=== PATIENT | male | born 1940 | race African-American/Black ===

== ENCOUNTER 2017-05-02 21:22 | Emergency (ER) | payer MEDICARE ==
[~2017-05-02] VITALS: Ht 185.4 cm; Wt 95.0 kg
[~2017-05-02 21:22] MED LIST: Z.0.NO CURRENT MEDS
[2017-05-02 21:43] VITALS: BP 216/98; PULSE 92; RESP 16; TEMP 98.9; O2SAT 99
[2017-05-02 22:20] VITALS: BP 217/99; PULSE 83; RESP 16; O2SAT 99
[2017-05-02] MEDS ORDERED: LANTUS2P SQ ×2 (22:24)
[2017-05-02] MEDS ORDERED: AMLO2.5T PO (22:24)
--- NOTE | 2017-05-02 22:32 | PD ---
HPI Chief Complaint: Fall Time Seen by Provider: 22:28 Travel History International Travel<30 days: No Contact w/Intl Traveler<30days: No Traveled to known affect area: No History of Present Illness HPI The patient is 76 year old male who presents to the [facility] emergency department with a history of reportedly falling sometime in the afternoon earlier today. He reports that he felt dizzy prior to the fall. The patient reports that he had been outside working on a lawnmower. He reports that it took longer than usual and he missed his afternoon snack. He believes that his blood sugar may have been low contributing to the dizziness. He denies having any dizziness at this time. He denies having any one-sided weakness, slurred speech, facial droop, or difficulty with word finding ability. He denies having any vision changes. He is unsure whether he lost consciousness with the fall. He did strike his right ear. He reports that he did not come in right away as he thought that the bleeding from his right ear was stopped, however it lasted longer than usual thus he decided to come in. He did eat a meal prior to arrival. The patient arrives with a blood sugar of 109. He denies having any chest pain, chest pressure, or shortness of breath. He denies taking any blood thinners or aspirin daily. On review of systems, he denies having any recent fevers or chills, cough or congestion, neck pain, abdominal pain, vomiting, diarrhea, urinary symptoms, or other neurologic symptoms. PFSH Past Medical History Narrative Medical The patient's past medical history is significant for diabetes mellitus, hypertension, arthritis. Hx Anticoagulant Therapy: No Blood Disorders: No Cancer: No Cardiovascular Problems: Yes Gastrointestinal Disorders: No Genitourinary: Yes Hypertension: Yes Immune Disorder: No Musculoskeletal: No Neurologic: Yes (DIZINESS) Psychiatric: No Reproductive: No Respiratory: No Past Surgical History Narrative Surgical The patient's past surgical history is significant for varicose vein surgery. Abdominal Surgery: No Cardiac Surgery: Yes (HTN, LIGHT HEADED) Ear Surgery: No Endocrine Surgery: No Eye Surgery: No Genitourinary Surgery: No Neurologic Surgery: Yes (DIZZINESS) Oral Surgery: No Pacemaker: No Thoracic Surgery: No Other Surgery: Yes (VERICOSE VEINS 20 + YEARS) Social History Alcohol Use: Yes (BEER LAST USED 2 MONTHS) Tobacco Use: Yes (EVERYDAY LAST TIME USED 12/17/06) Substance Use: No Allergies-Medications (Allergen,Severity, Reaction): Coded Allergies: No Known Allergies (Verified Allergy, Mild, 05/02/17) Reported Meds & Prescriptions Reported Meds & Active Scripts Active Reported Amlodipine (Amlodipine Besylate) 2.5 Mg Tab 2.5 Mg PO DAILY Lantus Inj (Insulin Glargine) 1,000 Unit/10 Ml Vial 20 Units SQ AC BREAKFAST Lantus Inj (Insulin Glargine) 1,000 Unit/10 Ml Vial 30 Units SQ AC DINNER No Current Meds (Miscellaneous Medication) Misc Review of Systems Except as stated in HPI: all other systems reviewed are Neg General / Constitutional: No: Fever Eyes: No: Visual changes HENT: Positive: Earache, No: Headaches, Rhinorrhea, Congestion Cardiovascular: No: Chest Pain or Discomfort Respiratory: No: Shortness of Breath Gastrointestinal: No: Abdominal Pain Genitourinary: No: Dysuria Musculoskeletal: No: Pain Skin: No Rash Neurologic: Positive: Weakness, Dizziness, No: Focal Abnormalities, Change in Mentation, Slurred Speech, Sensory Disturbance Psychiatric: No: Depression Endocrine: No: Polydipsia Hematologic/Lymphatic: No: Easy Bruising Physical Exam Narrative General: The patient is a well-developed well-nourished male in no acute distress. Head and Neck exam: Head is normocephalic, with evidence of trauma to the right ear. The patient is noted to have a laceration involving the pinna right side. Bleeding is controlled. This is tender to palpation. Eyes: EOMI, pupils are equal round and reactive to light. Nose: Midline septum with pink mucous membranes Mouth: Dentition unremarkable. Moist mucus membranes. Posterior oropharynx is not erythematous. No tonsillar hypertrophy. Uvula midline. Airway patent. Neck: No palpable lymphadenopathy. No nuchal rigidity. No thyromegaly. Cardiovascular: Regular rate and rhythm without murmurs, gallops, or rubs. Lungs: Clear to auscultation bilaterally. No wheezes, rhonchi, or rales. Abdomen: Soft, without tenderness to palpation in all 4 quadrants of the abdomen. No guarding, rebound, or rigidity. Normal bowel sounds are audible. No tenderness on palpation of McBurney's point. Negative Ceron sign. Extremities: No clubbing or cyanosis. The patient has trace to 1+ pitting edema bilateral lower extremities. No calf tenderness on palpation. 2+ pulses in all 4 extremities. Back: No spinous process tenderness to palpation. No costovertebral angle tenderness to palpation. Neurologic Exam: Cranial nerves 2-12 were intact on exam. Strength is 5/5 in all 4 extremities. No sensory deficits noted. Skin Exam: The patient is noted to have abrasion along with dorsal aspect of the left forearm. A bandage was applied prior to my arrival in the room. Intact skin that is warm and dry. Data Data Last Documented VS Vital Signs Date Time Temp Pulse Resp B/P (MAP) Pulse Ox O2 Delivery O2 Flow Rate FiO2 05/03/17 01:28 79 18 221/97 (138) 99 Room Air 05/02/17 21:43 98.9 Orders Orders Electrocardiogram (05/02/17 22:29) Complete Blood Count With Diff (05/02/17 22:29) Comprehensive Metabolic Panel (05/02/17 22:29) Creatine Kinase (Cpk) (05/02/17 22:29) Ckmb (Isoenzyme) Profile (05/02/17 22:29) Troponin I (05/02/17 22:29) B-Type Natriuretic Peptide (05/02/17 22:29) Prothrombin Time / Inr (Pt) (05/02/17 22:29) Act Partial Throm Time (Ptt) (05/02/17 22:29) Urinalysis - C+S If Indicated (05/02/17 22:29) Magnesium (Mg) (05/02/17 22:29) Thyroid Stimulating Hormone (05/02/17 22:29) Chest, Single Ap (05/02/17 22:29) Ct Brain W/O Iv Contrast(Rout) (05/02/17 22:29) Iv Access Insert/Monitor (05/02/17 22:29) Ecg Monitoring (05/02/17 22:29) Oximetry (05/02/17 22:29) Ct Cerv Spine W/O Contrast (05/02/17 ) [id number] (Booster) Inj (Boostrix (05/02/17 23:15) Sodium Chlor 0.9% 1000 Ml Inj (Ns 1000 M (05/02/17 23:15) CKMB (05/02/17 23:15) CKMB% (05/02/17 23:15) Cefazolin Inj (Ancef Inj) (05/02/17 23:45) Labetalol Inj (Trandate Inj) (05/03/17 01:30) Labs Laboratory Tests Test 05/02/17 23:15 05/03/17 00:58 05/03/17 01:02 White Blood Count 5.7 TH/MM3 Red Blood Count 4.33 MIL/MM3 Hemoglobin 13.7 GM/DL Hematocrit 40.7 % Mean Corpuscular Volume 94.0 FL Mean Corpuscular Hemoglobin 31.6 PG Mean Corpuscular Hemoglobin Concent 33.6 % Red Cell Distribution Width 14.9 % Platelet Count 198 TH/MM3 Mean Platelet Volume 7.8 FL Neutrophils (%) (Auto) 73.1 % Lymphocytes (%) (Auto) 17.7 % Monocytes (%) (Auto) 7.8 % Eosinophils (%) (Auto) 0.6 % Basophils (%) (Auto) 0.8 % Neutrophils # (Auto) 4.2 TH/MM3 Lymphocytes # (Auto) 1.0 TH/MM3 Monocytes # (Auto) 0.5 TH/MM3 Eosinophils # (Auto) 0.0 TH/MM3 Basophils # (Auto) 0.0 TH/MM3 CBC Comment DIFF FINAL Differential Comment Blood Urea Nitrogen 15 MG/DL Creatinine 1.50 MG/DL Random Glucose 116 MG/DL Total Protein 7.2 GM/DL Albumin 3.5 GM/DL Calcium Level 8.5 MG/DL Magnesium Level 2.1 MG/DL Alkaline Phosphatase 108 U/L Aspartate Amino Transf (AST/SGOT) 25 U/L Alanine Aminotransferase (ALT/SGPT) 15 U/L Total Bilirubin 0.6 MG/DL Sodium Level 142 MEQ/L Potassium Level 4.4 MEQ/L Chloride Level 107 MEQ/L Carbon Dioxide Level 28.9 MEQ/L Anion Gap 6 MEQ/L Estimat Glomerular Filtration Rate 55 ML/MIN Total Creatine Kinase 185 U/L Creatine Kinase MB 1.4 NG/ML Troponin I 0.04 NG/ML B-Type Natriuretic Peptide 29 PG/ML Thyroid Stimulating Hormone 3rd Gen 2.500 uIU/ML Prothrombin Time 10.8 SEC Prothromb Time International Ratio 1.1 RATIO Activated Partial Thromboplast Time 27.8 SEC MDM Medical Decision Making Medical Screen Exam Complete: Yes Emergency Medical Condition: Yes Medical Record Reviewed: Yes Differential Diagnosis Vasovagal syncope, versus hypoglycemia, versus cardiac arrhythmia, versus acute coronary syndrome Narrative Course During the course of the patient's emergency department visit, the patient's history, examination, and differential diagnosis were reviewed with the patient. The patient was placed on a rollout manager with oximetry and frequent blood pressure monitoring. The patient had IV access obtained and blood work sent for analysis. Hector Flowers, the physician web marketing assistant, was consulted regarding wound cleaning and irrigation of his right ear laceration The patient was initially provided Ancef 2 g IV, and update to his tetanus. The patient was noted to be hypertensive. The patient continued to be hypertensive during his evaluation. He reports he is on a half tablet of amlodipine daily. The patient was given labetalol 10 mg IV 1. The patient denies having any headache, neck pain, chest pain, chest pressure, or shortness of breath. He denies having any other focal neurologic symptoms. He denies having any vertigo. The patient's laboratory studies were reviewed and remarkable for a white count of 5.7, hemoglobin 13.7, platelets 198 with 73.1 neutrophils. CMP is remarkable for creatinine 1.50, glucose 116, cardiac enzymes within normal limits, BNP 29, TSH 2.5. PT 10.8, PTT 27.8. Radiology studies were reviewed and remarkable for a CT scan of the brain shows no acute intracranial abnormality, cerebral atrophy. A chest x-ray showed no acute cardiopulmonary disease. CT scan of the C-spine shows degenerative changes without fracture or subluxation. The patient on reexamination reports having no recurrence of dizziness since eating his snack and dinner. The patient reports that he did not check his blood sugar when he thought it was low. The patient was instructed to call his primary care physician in the morning to discuss his emergency department visit and schedule an appointment for follow- up for recheck of his blood pressure. The patient is resting comfortably and feels better, is alert and in no distress. The patient's results and examination findings were discussed with the patient. The repeat examination is unremarkable and benign. The history, exam, diagnostic testing, and current condition do not suggest any significant pathology to warrant further testing, continued ED treatment, admission, or surgical evaluation at this point. The vital signs have been stable. The patient does not have uncontrollable pain, intractable vomiting, or other significant symptoms. The patient's condition is stable and appropriate for discharge. The patient will pursue further outpatient evaluation with a primary care physician or other designated or consulting physician as indicated in the discharge instructions. The patient expressed understanding and was agreeable with this plan. Diagnosis Primary Impression: Dizziness Additional Impressions: Head injury Qualified Codes: S09.90XA - Unspecified injury of head, initial encounter Laceration of ear Qualified Codes: S01.311A - Laceration without foreign body of right ear, initial encounter Hypertension Qualified Codes: I10 - Essential (primary) hypertension Referrals: Primary Care Physician 1 day Patient Instructions: General Instructions, Head Injury (ED), Hypertension (ED) , Laceration (ED) Departure Forms: Tests/Procedures Med/Other Pt SpecificInfo: No Change to Meds Disposition: 01 DISCHARGE HOME Condition: Stable Vandana Alvarado MD May 02, 2017 22:32
--- NOTE | 2017-05-02 23:06 | RADRPT ---
EXAM DATE/TIME: 05/02/2017 22:42 [facility] COMPARISON: No previous studies available for comparison. INDICATIONS : Syncope. MEDICAL HISTORY : Diabetes. SURGICAL HISTORY : None. ENCOUNTER: Initial ACUITY: 1 day PAIN SCORE: 0/10 LOCATION: Bilateral chest FINDINGS: A single view of the chest demonstrates the lungs to be symmetrically aerated without evidence of mas s, infiltrate or effusion. The cardiomediastinal contours are unremarkable. Osseous structures are intact. CONCLUSION: No acute disease. Hector Viera MD on May 02, 2017 at 23:03 Board Certified Radiologist. This report was verified electronically.
[2017-05-02] MEDS ORDERED: DIPHTH/TETANUS/ACEL PERTUSSIS (BOOSTER) 0.5 ML VIAL/PFS IM ONE (23:15)
[2017-05-02] MEDS ORDERED: ceFAZolin 2 GM PREMIX 50 ML IV ONE (23:15)
[2017-05-02] MEDS ORDERED: SODIUM CHLOR 0.9% 1000 ML INJ 1,000 ML IV SCH (23:15)
--- NOTE | 2017-05-02 23:15 | RADRPT ---
EXAM DATE/TIME: 05/02/2017 23:01 [facility] COMPARISON: No previous studies available for comparison. INDICATIONS : Trauma. Fell hitting right side of head. RADIATION DOSE: 41.22 CTDIvol (mGy) MEDICAL HISTORY : Cardiovascular disease. Hypertension. SURGICAL HISTORY : None. ENCOUNTER: Initial ACUITY: 1 day PAIN SCALE: 5/10 LOCATION: Right cranial TECHNIQUE: Multiple contiguous axial images were obtained of the head. Using automated exposure control and adj ustment of the mA and/or kV according to patient size, radiation dose was kept as low as reasonably a chievable to obtain optimal diagnostic quality images. DICOM format image data is available electro nically for review and comparison. FINDINGS: CEREBRUM: The ventricles are mildly prominent consistent with atrophy. No evidence of midline shift, mass lesi on, hemorrhage or acute infarction. No extra-axial fluid collections are seen. POSTERIOR FOSSA: The cerebellum and brainstem are intact. The 4th ventricle is midline. The cerebellopontine angle i s unremarkable. EXTRACRANIAL: The visualized portion of the orbits is intact. SKULL: The calvaria is intact. No evidence of skull fracture. CONCLUSION: No acute intracranial disease. Cerebral atrophy. Jono Spann MD on May 02, 2017 at 23:12 Board Certified Radiologist. This report was verified electronically.
--- NOTE | 2017-05-02 23:23 | RADRPT ---
EXAM DATE/TIME: 05/02/2017 23:01 [facility] COMPARISON: No previous studies available for comparison. INDICATIONS : Trauma. Fell hitting right side of head. RADIATION DOSE: 21.25 CTDIvol (mGy) MEDICAL HISTORY : Cardiovascular disease. Hypertension. SURGICAL HISTORY : None. ENCOUNTER: Initial ACUITY: 1 day PAIN SCALE: 0/10 LOCATION: neck TECHNIQUE: Volumetric scanning of the cervical spine was performed. Multiplanar reconstructions in the sagittal, coronal and oblique axial planes were performed. Using automated exposure control and adjustment o f the mA and/or kV according to patient size, radiation dose was kept as low as reasonably achievable to obtain optimal diagnostic quality images. DICOM format image data is available electronically f or review and comparison. FINDINGS: VERTEBRAE: Normal vertebral body height. Multilevel degenerative changes. Anterior endplate osteophytes at multi ple levels. Calcification anterior longitudinal ligament C4-C7. ALIGNMENT: No evidence of subluxation. C2-C3: The bony spinal canal is normal in size. No evidence of disc bulge or herniation. Right neural concetta en severely encroached upon. C3-C4: The bony spinal canal is normal in size. No evidence of disc bulge or herniation. Mild neural forami nal narrowing bilaterally. Hypertrophic facet on the right. C4-C5: The bony spinal canal is normal in size. No evidence of disc bulge or herniation. Mild neural forami nal narrowing bilaterally. C5-C6: The bony spinal canal is normal in size. No evidence of disc bulge or herniation. The neural forami na are bilaterally patent. C6-C7: The bony spinal canal is normal in size. No evidence of disc bulge or herniation. The neural forami na are bilaterally patent. C7-T1: The bony spinal canal is normal in size. No evidence of disc bulge or herniation. The neural forami na are bilaterally patent. CONCLUSION: 1. Degenerative changes without fracture or subluxation. Jono Spann MD on May 02, 2017 at 23:17 Board Certified Radiologist. This report was verified electronically.
[2017-05-02 23:27] LABS: AUTOMATED NEUTROPHIL # 4.2 TH/MM3 (1.8-7.7); BASOPHIL % 0.8 % (0.0-2.0); EOSINOPHIL % 0.6 % (0.0-4.0); HEMATOCRIT 40.7 % (39.0-51.0); HEMOGLOBIN 13.7 GM/DL (13.0-17.0); LYMPH % 17.7 % (9.0-44.0); MEAN CORPUSCULAR HEMOGLOBIN 31.6 PG (27.0-34.0); MEAN CORPUSCULAR HGB CONC 33.6 % (32.0-36.0); MEAN PLATELET VOLUME 7.8 FL (7.0-11.0); MONO % 7.8 % (0.0-8.0); MONOCYTE # 0.5 TH/MM3 (0-0.9); NEUT % 73.1 % (16.0-70.0); PLATELET COUNT 198 TH/MM3 (150-450); RED BLOOD COUNT 4.33 MIL/MM3 (4.50-5.90); RED CELL DISTRIBUTION WIDTH 14.9 % (11.6-17.2); WHITE BLOOD COUNT 5.7 TH/MM3 (4.0-11.0)
[2017-05-02 23:41] LABS: ALBUMIN 3.5 GM/DL (3.4-5.0); ALT (GPT) 15 U/L (12-78); AST (GOT) 25 U/L (15-37); BICARBONATE 28.9 MEQ/L (21.0-32.0); BLOOD UREA NITROGEN 15 MG/DL (7-18); CALCIUM 8.5 MG/DL (8.5-10.1); CHLORIDE 107 MEQ/L (98-107); GLOMERULAR FILTRATION RATE 55 ML/MIN (>89); GLUCOSE,RANDOM 116 MG/DL (74-106); MAGNESIUM 2.1 MG/DL (1.5-2.5); SODIUM (NA) 142 MEQ/L (136-145)
[2017-05-02] MEDS ORDERED: CEFAZOLIN INJ 2,000 MG in SODIUM CHLORIDE 0.9% INJ 100 ML IV ONE (23:45)
[2017-05-02 23:51] LABS: ALKALINE PHOSPHATASE 108 U/L (45-117); TOTAL BILIRUBIN ADULT 0.6 MG/DL (0.2-1.0); TOTAL PROTEIN 7.2 GM/DL (6.4-8.2); TROPONIN I 0.04 NG/ML (0.02-0.05)
--- NOTE | 2017-05-03 00:39 | PD ---
Physical Exam Date Seen by Provider: May 03, 2017 Time Seen by Provider: 00:35 Narrative Skin: Patient has a 4 cm flap laceration to the right helix. No laceration through the cartilage. Data Data Last Documented VS Vital Signs Date Time Temp Pulse Resp B/P (MAP) Pulse Ox O2 Delivery O2 Flow Rate FiO2 05/02/17 22:20 83 16 217/99 (138) 99 Room Air 05/02/17 21:43 98.9 Orders Orders Electrocardiogram (05/02/17 22:29) Complete Blood Count With Diff (05/02/17 22:29) Comprehensive Metabolic Panel (05/02/17 22:29) Creatine Kinase (Cpk) (05/02/17 22:29) Ckmb (Isoenzyme) Profile (05/02/17:29) Troponin I (05/02/17:) B-Type Natriuretic Peptide (05/02/17:29) Prothrombin Time / Inr (Pt) (05/02/17:29) Act Partial Throm Time (Ptt) (05/02/17:29) Urinalysis - C+S If Indicated (05/02/17 22:29) Magnesium (Mg) (05/02/17 22:29) Thyroid Stimulating Hormone (05/02/17 22:29) Chest, Single Ap (05/02/17 22:29) Ct Brain W/O Iv Contrast(Rout) (05/02/17 22:29) Iv Access Insert/Monitor (05/02/17 22:29) Ecg Monitoring (05/02/17:29) Oximetry (05/02/17 22:29) Ct Cerv Spine W/O Contrast (05/02/17 ) [id number] (Booster) Inj (Boostrix (05/02/17 23:15) Sodium Chlor 0.9% 1000 Ml Inj (Ns 1000 M (05/02/17 23:15) CKMB (05/02/17 23:15) CKMB% (05/02/17 23:15) Cefazolin Inj (Ancef Inj) (05/02/17 23:45) Labs Laboratory Tests Test 05/02/17 23:15 White Blood Count 5.7 TH/MM3 Red Blood Count 4.33 MIL/MM3 Hemoglobin 13.7 GM/DL Hematocrit 40.7 % Mean Corpuscular Volume 94.0 FL Mean Corpuscular Hemoglobin 31.6 PG Mean Corpuscular Hemoglobin Concent 33.6 % Red Cell Distribution Width 14.9 % Platelet Count 198 TH/MM3 Mean Platelet Volume 7.8 FL Neutrophils (%) (Auto) 73.1 % Lymphocytes (%) (Auto) 17.7 % Monocytes (%) (Auto) 7.8 % Eosinophils (%) (Auto) 0.6 % Basophils (%) (Auto) 0.8 % Neutrophils # (Auto) 4.2 TH/MM3 Lymphocytes # (Auto) 1.0 TH/MM3 Monocytes # (Auto) 0.5 TH/MM3 Eosinophils # (Auto) 0.0 TH/MM3 Basophils # (Auto) 0.0 TH/MM3 CBC Comment DIFF FINAL Differential Comment Blood Urea Nitrogen 15 MG/DL Creatinine 1.50 MG/DL Random Glucose 116 MG/DL Total Protein 7.2 GM/DL Albumin 3.5 GM/DL Calcium Level 8.5 MG/DL Magnesium Level 2.1 MG/DL Alkaline Phosphatase 108 U/L Aspartate Amino Transf (AST/SGOT) 25 U/L Alanine Aminotransferase (ALT/SGPT) 15 U/L Total Bilirubin 0.6 MG/DL Sodium Level 142 MEQ/L Potassium Level 4.4 MEQ/L Chloride Level 107 MEQ/L Carbon Dioxide Level 28.9 MEQ/L Anion Gap 6 MEQ/L Estimat Glomerular Filtration Rate 55 ML/MIN Total Creatine Kinase 185 U/L Creatine Kinase MB 1.4 NG/ML Troponin I 0.04 NG/ML B-Type Natriuretic Peptide 29 PG/ML Thyroid Stimulating Hormone 3rd Gen 2.500 uIU/ML [facility] Medical Record Reviewed: Yes Supervised Visit with [place]: Yes Differential Diagnosis . Narrative Course Patient lacerations closed sutures. Procedures Procedure Narrative LACERATION LOCATION: Right earlobe inner helix LENGTH: 4 cm NUMBER OF STITCHES/CAROL:8 REPAIR: The area of the laceration was prepped with Betadine and sterilely draped. The laceration was infiltrated with 1% lidocaine]. The wound was copiously irrigated and explored without evidence of foreign body, tendon injury or neurovascular injury. The wound was closed using 6-0 Prolene]. This was a [-] layer repair. A sterile dressing was applied. The patient was advised to keep the dressing clean and dry. Patient tolerated the procedure well. Condition: Stable Hector Oleary May 03, 2017 00:39
[2017-05-03 01:28] VITALS: BP 221/97; PULSE 79; RESP 18; O2SAT 99
[2017-05-03] MEDS ORDERED: LABETALOL HCL 100 MG/20 ML VIAL IV PUSH ONE (01:30)
[2017-05-03 01:38] LABS: INTERNATIONAL NORMALIZED RATIO 1.1 RATIO; PROTHROMBIN TIME - PATIENT 10.8 SEC (9.8-11.6)
[2017-05-03 01:50] LABS: BILIRUBIN, URINE NEG (NEG); BLOOD, URINE NEG (NEG); GLUCOSE,URINE NEG (NEG); KETONE, URINE NEG (NEG); MUCUS URINE FEW /lpf (OCC); NITRITE,URINE NEG (NEG); PH, URINE 5.5 (5.0-8.5); SQUAMOUS EPITHELIAL CELL URINE <1 /hpf (0-5); URINE COLOR YELLOW (YELLW/STRAW); URINE LEUKOCYTE ESTERASE NEG (NEG)
[2017-05-03 01:57] VITALS: BP 187/86; PULSE 77; RESP 18; O2SAT 99
--- NOTE | 2017-05-03 16:03 | EKG ---
Date Performed: 05/03/2017 Time Performed: 01:24:34 PTAGE: 76 years EKG: Sinus rhythm RIGHT BUNDLE BRANCH BLOCK INFERIOR MYOCARDIAL INFARCTION ABNORMAL ECG PREVIOUS TRACING 12/18/[address] changes have improved since prior tracing. Right bundl e branch block is new. Clinical correlation is strongly recommended. DOCTOR: Jose Foley Interpretating Date/Time 05/03/2017 16:03:35
== END 2017-05-03 02:12 | disposition home or self-care (01) ==
LOC: EDBD 21:22 → NEPE 21:22
DX: S01.311A Laceration without foreign body of right ear, initial encounter (principal); E11.9 Type 2 diabetes mellitus without complications; I10 Essential (primary) hypertension; I45.10 Unspecified right bundle-branch block; R94.31 Abnormal electrocardiogram [ECG] [EKG]; W19.XXXA Unspecified fall, initial encounter; Z23 Encounter for immunization; Z79.4 Long term (current) use of insulin; Z87.891 Personal history of nicotine dependence
CPT/HCPCS: 12013; 70450; 71045; 72125; 80053; 81001; 82550; 82552; 83735; 83880; 84443; 84484; 85025; 85610; 85730; 90471; 90715; 93005; 96365; 96375; 99285; J0690; J7030

== ENCOUNTER 2017-05-10 08:19 | Emergency (ER) | payer MEDICARE, OTHER ==
[~2017-05-10] VITALS: Ht 185.4 cm; Wt 95.0 kg
[~2017-05-10 08:19] MED LIST changes: +AMLO2.5T PO; +LANTUS2P SQ
[2017-05-10 08:29] VITALS: BP 190/88; PULSE 93; RESP 17; TEMP 98.4; O2SAT 99
--- NOTE | 2017-05-10 09:22 | PD ---
HPI Chief Complaint: Laceration/Skin Injury Time Seen by Provider: 09:02 Travel History International Travel<30 days: No Contact w/Intl Traveler<30days: No Traveled to known affect area: No History of Present Illness HPI Patient is a 76 year old male who comes in for suture removal. Stitches were placed May 02 to his right ear after a fall. He denies any issues with the ear. He denies any pain, leakage of fluids, or redness to the area. Severity is mild. PFSH Past Medical History Hx Anticoagulant Therapy: No Blood Disorders: No Cancer: No Cardiovascular Problems: Yes Diabetes: Yes Patient Takes Glucophage: No Diminished Hearing: No Gastrointestinal Disorders: No Genitourinary: Yes Hypertension: Yes Immune Disorder: No Musculoskeletal: No Neurologic: Yes (dizziness) Psychiatric: No Reproductive: No Respiratory: No Tetanus Vaccination: < 5 Years Influenza Vaccination: Yes Past Surgical History Abdominal Surgery: No Cardiac Surgery: Yes (HTN, LIGHT HEADED) Ear Surgery: No Endocrine Surgery: No Eye Surgery: No Genitourinary Surgery: No Neurologic Surgery: Yes (DIZZINESS) Oral Surgery: No Pacemaker: No Thoracic Surgery: No Other Surgery: Yes (VERICOSE VEINS 20 + YEARS) Social History Alcohol Use: Yes (BEER LAST USED 2 MONTHS) Tobacco Use: No (EVERYDAY LAST TIME USED 12/17/06) Substance Use: No Allergies-Medications (Allergen,Severity, Reaction): Coded Allergies: No Known Allergies (Verified Allergy, Mild, 05/10/17) Reported Meds & Prescriptions Reported Meds & Active Scripts Active Reported Amlodipine (Amlodipine Besylate) 2.5 Mg Tab 2.5 Mg PO DAILY Lantus Inj (Insulin Glargine) 1,000 Unit/10 Ml Vial 20 Units SQ AC BREAKFAST Lantus Inj (Insulin Glargine) 1,000 Unit/10 Ml Vial 30 Units SQ AC DINNER Review of Systems General / Constitutional: No: Fever, Chills HENT: No: Headaches, Lightheadedness Cardiovascular: No: Chest Pain or Discomfort Respiratory: No: Shortness of Breath Gastrointestinal: No: Nausea, Vomiting Skin: No Change in Pigmentation, No Lesions Neurologic: No: Weakness, Dizziness Physical Exam Narrative GENERAL: Awake and alert, in no acute distress. SKIN: Focused skin assessment warm/dry. Healing wound to the right ear, no erythema or warmth. HEAD: Atraumatic. Normocephalic. EYES: Pupils equal and round. No scleral icterus. ENT: Mucous membranes pink and moist. CARDIOVASCULAR: Regular rate and rhythm. No murmur appreciated. RESPIRATORY: No accessory muscle use. Clear to auscultation. Breath sounds equal bilaterally. MUSCULOSKELETAL: No obvious deformities. No clubbing. No cyanosis. No edema. NEUROLOGICAL: Awake and alert. No obvious cranial nerve deficits. Motor grossly within normal limits. Normal speech. Data Data Last Documented VS Vital Signs Date Time Temp Pulse Resp B/P (MAP) Pulse Ox O2 Delivery O2 Flow Rate FiO2 05/10/17 08:45 93 17 05/10/17 08:29 98.4 190/88 (122) 99 MDM Medical Decision Making Medical Screen Exam Complete: Yes Emergency Medical Condition: Yes Medical Record Reviewed: Yes Differential Diagnosis suture removal vs wound check vs cellulitis Narrative Course Patient is a 76 year old male who comes in to have his sutures remove. Exam shows well healing wound, no signs of infection. Sutures removed without an issue. Advised to keep the wound clean and dry. Advised to return for any worsening symptoms. Diagnosis Primary Impression: Visit for suture removal Patient Instructions: General Instructions, Stitches Removal (ED) Additional Instructions: Keep your wound clean and dry. Return at any time for any worsening symptoms. Disposition: 01 DISCHARGE HOME Condition: Stable Sol Bender MD May 10, 2017 09:22
[2017-05-10 09:35] VITALS: BP 130/79; TEMP 98.2
== END 2017-05-10 09:38 | disposition home or self-care (01) ==
LOC: NEPE 08:19
DX: Z48.02 Encounter for removal of sutures (principal)
CPT/HCPCS: 99281